=== PATIENT | male | born 1990 | race Caucasian/White ===

== ENCOUNTER 2017-11-13 19:27 | Emergency (ER) | payer MEDICAID, SELFPAY ==
[2017-11-13 19:27] VITALS: BP 162/100; PULSE 79; RESP 20; TEMP 37.1; O2SAT 99; BMI 32.5
--- NOTE | 2017-11-13 19:41 | CT_ITS ---
CT head/brain wo con Ordering Physician: Brian Manuel MD Patient Age: 27 years: Male HISTORY: ITS.REASON: SEIZURE Seizure. Hit head. Fall. Headache TECHNIQUE: Routine axial CT head without contrast. Brain and bone windows performed COMPARISON :None FINDINGS No acute intracranial findings. No hemorrhage. No mass. No extra-axial nor subdural collection. . No mass lesion. No mass effect. The ventricles and basal cisterns appear normal. Bone Windows the skull is intact no skull fracture evident. There may be some mild soft tissue edema at the for head correlation required IMPRESSION: No acute intracranial findings. Brain within normal limits.
[2017-11-13 19:52] LABS: Basophils % 0.8 % (0.1-2.0); Eosinophils # 0.1 K/mm3 (0.0-0.4); Eosinophils % 2.2 % (0.1-12.0); Hematocrit 43.9 % (42.0-52.0); Hemoglobin 15.4 g/dL (14.1-18.0); Lymphocytes # 1.6 K/mm3 (0.7-4.5); Lymphocytes % 41.3 K/mm3 (10-50); Mean Corpuscular HGB Conc 35.1 g/dL (31.8-35.4); Mean Corpuscular Hemoglobin 30.8 pg (27.0-31.2); Mean Corpuscular Volume 87.5 fl (80-94); Mean Platelet Volume 7.8 fl (7.4-10.4); Monocytes # 0.3 K/mm3 (0.1-1.0); Monocytes % 6.9 % (1.7-9.3); Neutrophils # 1.9 K/mm3 (1.8-7.8); Neutrophils % 48.7 % (37.0-80.0); Platelet Count 171 K/mm3 (142-424); Red Blood Count 5.02 M/mm3 (4.60-6.20); Red Cell Distribution Width 12.5 % (11.5-17.5); White Blood Count 3.9 K/mm3 (4.8-10.8)
--- NOTE | 2017-11-13 19:52 | CT_ITS ---
CT cervical spine wo con Ordering Physician: Brian Manuel MD Patient Age: 27 years: Male HISTORY: ITS.REASON: SEIZURE AND FELL OUT OF BED Seizure. Neck and head injury. TECHNIQUE: Helical CT scanning performed the cervical spine with sagittal and coronal reconstructions on CT workstation. COMPARISON : None FINDINGS No acute fracture nor subluxation . Straightening with subtle Slight reversal of the normal cervical curvature.. Nonspecific, May be positional but could reflect muscle spasm a recent injury The vertebral bodies intact. Subtle feature early marginal osteophyte a focus of a most likely accounts for the appearance at the anterior superior aspect C5. Margins appear corticated with no soft tissue swelling. . Disc spaces intact. Facets intact. Spinous processes intact. No spleen. No disruption Prevertebral soft tissues with no significant appearing thickening. C1-C2 relationships appear normal. Dens intact. Mild residual adenoidal hypertrophy moderate size tonsils and lymphoid tissue and not a common for age. Apices the lungs clear. IMPRESSION: ==== Cervical spine intact with no acute fracture nor subluxation.. Nonspecific straightening, slight reversal of cervical curvature. Although may merely be positional could reflect muscle spasm from recent injury.
--- NOTE | 2017-11-13 20:14 | [facility].EDSEIZ ---
ED Disposition Clinical Impression: Epileptic seizure Qualifiers: Epilepsy type: unspecified Intractability: not intractable Status epilepticus: without status epilepticus Qualified Code(s): G40.909 - Epilepsy, unspecified, not intractable, without status epilepticus Disposition: Home, Self-Care Condition on Discharge: Good Instructions: DI for Seizure Disorder -- Adult Additional Instructions: see pcp of choice Prescriptions: levETIRAcetam [Keppra 500mg tablet] 500 mg PO BID #30 tab - Critical Care Critical Care Time: No Attestation: On 11/13/17, the high probability of a clinically significant, sudden or life threatening deterioration of the following system(s) required my full and direct attention, intervention and personal management. The time I documented below is in addition to time spent performing reported procedures but includes the following listed in this critical care notation. Medical Decision Making - Medical Records Medical records reviewed: Yes: I reviewed the patient's medical records. - Angel Luis Inquiry Pt receiving controlled substance: No Vital Signs: 11/13/17 19:27 11/13/17 21:35 Temperature 98.7 F 97.6 F Temperature Source Oral Oral Pulse Rate [Right Radial] 79 73 Respiratory Rate 20 16 Blood Pressure [Right Arm] 162/100 124/69 Blood Pressure Mean [Right Arm] 120 87 Blood Pressure Source [Right Arm] Automatic Cuff Blood Pressure Position [Right Arm] Supine 02 Sat by Pulse Oximetry 99 99 Oxygen Delivery Method Room Air Room Air - Lab Data Lab results reviewed: Yes: I reviewed the patient's lab results. Lab Results 11/13/17 19:30: WBC 3.9 L, RBC 5.02, Hgb 15.4, Hct 43.9, MCV 87.5, MCH 30.8, MCHC 35.1, RDW 12.5, Plt Count 171, MPV 7.8, Neut % (Auto) 48.7, Lymph % (Auto) 41.3, [facility] % (Auto) 6.9, Eos % (Auto) 2.2, Baso % (Auto) 0.8, Neut # (Auto) 1.9, Lymph # (Auto) 1.6, [facility] # (Auto) 0.3, Eos # (Auto) 0.1, Baso # (Auto) 0.0 11/13/17 19:30: Sodium 143, Potassium 3.4 L, Chloride 107, Carbon Dioxide 24, Anion Gap 15.4 H, BUN 14, Creatinine 0.79, Estimated Creat Clear 212, Estimated GFR 116, Est GFR ( Amer) 140, Glucose 118 H, Calcium 8.2 L, Total Bilirubin 0.2, AST 25, ALT 46, Alkaline Phosphatase 83, Total Protein 6.1 L, Albumin 3.5, Globulin 2.6, Albumin/Globulin Ratio 1.3, Total Valproic Acid < 0.7 L* Result diagrams: 11/13/17 19:30 11/13/17 19:30 Orders (Tests/Meds): ORDERS Category Date Time Status UDS [Drug Screen,Urine] Stat Lab 11/13/17 20:15 Ordered - CT Data CT Scan: Head, C-Spine Time Received: 22:[address] Reviewed: Yes: I have viewed the radiologist's interpretation Preliminary Findings: Normal/NAD, No Fracture Seen Seizures HPI - General Chief Complaint: Seizure Stated Complaint: SEIZURE Time Seen by Provider: 11/13/17 20:00 Mode of Arrival: EMS Source of Information: Patient, Significant Other, EMS, Medical Record Limitations: No Limitations Description of Symptoms (Recalled from ER Triage Doc. by RN): WITNESSED SEIZURE AT HOME , PT HAS BEEN NOT TAKING HIS MEDS , PT WAS ALSO SEEN HERE IN THERE ER 2 DAYS AGO FOR THE SAME PROBLEM - History of Present Illness HPI Narrative: pt with hx of sz disorder and has been off meds for months - no fever or rash and no trauma MD complaint: seizure Onset (ago): year(s) Description of Episode: tonic-clonic movement -: minutes(s) Witnessed: yes - by bystander Trauma: No Seizure History: known seizure disorder Place: home Possible Precipitating Event: none Treatments prior to arrival: none - Related Data Previous Rx's Medication Instructions Recorded levETIRAcetam [Keppra 500mg tablet] 500 mg PO BID #30 tab 11/13/17 Allergies Allergy/AdvReac Type Severity Reaction Status Date / Time No Known Allergies Allergy Verified 11/08/17 04:24 [facility] History I have reviewed the patient's past medical history: Yes Medical History: Denies:: Cancer, Diabetes Mellitus Type 1, Diabetes Melli
[2017-11-13 20:46] LABS: Albumin Level 3.5 gm/dL (3.4-5.0); Alkaline Phosphatase 83 U/L (46-116); Anion Gap 15.4 mEq/L (5-15); Bilirubin,Total 0.2 mg/dL (0.2-1.0); Blood Urea Nitrogen 14 mg/dL (7-18); Calcium 8.2 mg/dL (8.5-10.1); Carbon Dioxide 24 mmol/L (21.0-32.0); Chloride 107 mmol/L (98-107); Creatinine Clearance Estimated 212 mL/min (0-300); Creatinine,Serum 0.79 mg/dL (0.70-1.30); Estimated Glomerular Filt Rate 116 ml/min (>60); GFR (African American) 140 ML/MIN (>60)
[2017-11-13 21:23] LABS: Valproic Acid, (Depakene) < 0.7 ug/mL (50-100)
[2017-11-13 21:25] LABS: Alanine Aminotransferase 46 U/L (12-78); Aspartate Amino Transferase 25 U/L (15-37); Glucose 118 mg/dL (74-106)
[2017-11-13 21:26] LABS: Albumin/Globulin Ratio 1.3 (1.1-1.8); Globulin 2.6 gm/dl (1.3-3.2); Total Protein,Serum 6.1 gm/dL (6.4-8.2)
[2017-11-13 21:28] LABS: Potassium 3.4 mmoL/L (3.5-5.1); Sodium 143 mmol/L (136-145)
[2017-11-13 21:35] VITALS: BP 124/69; PULSE 73; RESP 16; TEMP 36.4; O2SAT 99
--- NOTE | 2017-11-13 22:23 | PC.NURSE ---
ON THE PHONE WITH GORGE FROM PHARMACY AT THIS TIME
--- NOTE | 2017-11-13 22:24 | PC.NURSE ---
Pt was given a list of physicians for follow up care
[2017-11-13 22:49] VITALS: BP 146/71; PULSE 84; RESP 14; TEMP 37; O2SAT 97
== END 2017-11-13 22:49 | disposition home or self-care (01) ==
PROVIDERS: Emergency Provider Emergency Medicine
DX: G40.909 Epilepsy, unspecified, not intractable, without status epilepticus (principal); F17.210 Nicotine dependence, cigarettes, uncomplicated
CPT/HCPCS: 70450; 72125; 80053; 80164; 85025; 99283

== ENCOUNTER 2023-10-20 20:04 | Outpatient (CLI) | payer OTHER, SELFPAY ==
[2023-10-20 18:25] LABS: Basophils % 0.6 % (0.1-2.0); Eosinophils # 0.1 K/mm3 (0.0-0.4); Eosinophils % 1.6 % (0.1-12.0); Hematocrit 51.7 % (42.0-52.0); Hemoglobin 17.5 g/dL (14.1-18.0); Lymphocytes # 1.8 K/mm3 (0.7-4.5); Lymphocytes % 26.7 % (10-50); Mean Corpuscular HGB Conc 33.9 g/dL (31.8-35.4); Mean Corpuscular Hemoglobin 31.9 pg (27.0-31.2); Mean Corpuscular Volume 94.2 fl (80-94); Mean Platelet Volume 8.7 fl (7.4-10.4); Monocytes # 0.6 K/mm3 (0.1-1.0); Monocytes % 8.7 % (1.7-9.3); Neutrophils # 4.3 K/mm3 (1.8-7.8); Neutrophils % 62.4 % (37.0-80.0); Platelet Count 191 K/mm3 (142-424); Red Blood Count 5.49 M/mm3 (4.60-6.20); Red Cell Distribution Width 13.5 % (11.5-17.5); White Blood Count 6.9 K/mm3 (4.8-10.8)
[2023-10-20 18:48] LABS: Prothrombin Time 10.8 seconds (10.1-12.5)
[2023-10-20 18:51] LABS: Alanine Aminotransferase 85 U/L (12-78); Albumin/Globulin Ratio 1.9 (1.1-1.8); Alkaline Phosphatase 85 U/L (38-126); Anion Gap 15.2 mEq/L (5-15); Aspartate Amino Transferase 59 U/L (17-59); Bilirubin,Total 0.6 mg/dl (0.2-1.3); Blood Urea Nitrogen 13 mg/dl (9-20); Calcium 9.5 mg/dl (8.4-10.2); Carbon Dioxide 21 mmol/L (22.0-30.0); Chloride 108 mmol/L (98-107); Estimated Glomerular Filt Rate 128 ml/min (>60); GFR (African American) 155 ML/MIN (>60); Globulin 2.7 g/dL (1.3-3.2); Glucose 89 mg/dl (74-100); Potassium 4.2 mmoL/L (3.5-5.1); Sodium 140 mmol/L (136-145); Total Protein,Serum 7.7 g/dl (6.3-8.2)
[2023-10-22 10:20] LABS: HIV Screen 4th Generation wRfx Non Reactive (Non Reactive)
[2023-10-25 22:16] LABS: HCV Genotype Charge YES; Hepatitis C Genotype 3 (.)
[2023-10-26 09:09] LABS: Hep A Ab, Total Negative; Hep B Core Ab, Total Negative; Hepatitis B Surface Antigen Negative
[2023-10-26 09:10] LABS: Hep B Surface Ab, Qual Non Reactive
[2023-10-26 09:11] LABS: Hepatitis C Antibody Reactive
[2023-10-26 09:13] LABS: Fibrosis Score 0.11; Fibrosis Stage F0 NO FIBROSIS; Necroinflammat Activity Grade A1-A2; Necroinflammat Activity Score 0.41
[2023-10-26 09:14] LABS: Alpha 2-Macroglobulins, Qn 190
[2023-10-26 09:15] LABS: Apolipoprotein A-1 135; Haptoglobin 231
[2023-10-26 09:16] LABS: ALT (SGPT) P5P 81; Bilirubin, Total 0.2; GGT 110
== END 2023-10-20 23:59 ==
LOC: LAB.DROPOF 20:05
PROVIDERS: PCP Nurse Practitioner Family; Visit Provider Nurse Practitioner Family
DX: R74.01 Elevation of levels of liver transaminase levels; I10 Essential (primary) hypertension; E66.9 Obesity, unspecified; Z68.38 Body mass index [BMI] 38.0-38.9, adult; F17.210 Nicotine dependence, cigarettes, uncomplicated; L81.8 Other specified disorders of pigmentation; Z11.4 Encounter for screening for human immunodeficiency virus [HIV]; Z11.59 Encounter for screening for other viral diseases
CPT/HCPCS: 80053; 81596; 85025; 85610; 86703; 86704; 86706; 86708; 87340; 87380; 87522; 87902; G0432

== ENCOUNTER 2024-01-19 09:41 | Outpatient (CLI) | payer OTHER, SELFPAY ==
[2024-01-19 19:15] LABS: Anion Gap 14.1 mEq/L (5-15); Blood Urea Nitrogen 15 mg/dl (9-20); Calcium 9.5 mg/dl (8.4-10.2); Carbon Dioxide 25 mmol/L (22.0-30.0); Chloride 104 mmol/L (98-107); Estimated Glomerular Filt Rate 109 ml/min (>60); GFR (African American) 132 ML/MIN (>60); Glucose 117 mg/dl (74-100); Potassium 4.1 mmoL/L (3.5-5.1); Sodium 139 mmol/L (136-145)
== END 2024-01-19 23:59 | disposition home or self-care (01) ==
LOC: LAB.DROPOF 01-22 09:41
PROVIDERS: PCP Nurse Practitioner Family; Visit Provider Nurse Practitioner Family
DX: I10 Essential (primary) hypertension (principal); F17.210 Nicotine dependence, cigarettes, uncomplicated; B18.2 Chronic viral hepatitis C
CPT/HCPCS: 80048